=== PATIENT | male | born 1960 | race Caucasian/White ===

== ENCOUNTER 2025-06-01 09:40 | Outpatient (CLI) | payer MEDICARE ==
[2025-06-01 11:21] LABS: #Basophils 0.05 10x3/uL (0.0-0.2); #Eosinophils 0.18 10x3/uL (0.0-0.7); #Monocytes 0.32 10x3/uL (0.11-0.59); #Neutrophils 3.28 10x3/uL (1.40-6.50); %Basophils 0.7 % (0.0-1.0); %Eosinophils 2.6 % (0.0-10.0); %Lymphocytes 44.0 % (21.0-51.0); %Monocytes 4.6 % (0.0-10.0); %Neutrophils 47.7 % (42.0-75.0); Hematocrit 48.6 % (42.0-52.0); Hemoglobin 15.7 g/dL (14.0-18.0); Mean Corpuscular Hemoglobin 29.1 pg (27.0-31.0); Mean Corpuscular Volume 90.2 fL (78.0-98.0); Platelet Count 267 10x3/uL (130-400); Red Blood Cell (RBC) Count 5.39 mill/uL (4.70-6.10); White Blood Cell (WBC) Count 6.89 10x3/uL (4.8-10.8)
[2025-06-01 11:37] LABS: INR-International Normal Ratio 1.0; Prothrombin Time 13.4 sec (12.0-14.7)
[2025-06-01 11:38] LABS: PTT 31.2 sec (22.9-36.1)
[2025-06-01 11:41] LABS: Anion Gap 17 mmol/L (10-20); BUN (Urea Nitrogen) 14 mg/dL (8.4-25.7); Calc. Creatinine Clearance 0 mL/min (70-130); Calcium 9.1 mg/dL (7.8-10.44); Carbon Dioxide 26 mmol/L (23-31); Chloride 102 mmol/L (98-107); Glucose 140 mg/dL (80-115); Potassium 4.1 mmol/L (3.5-5.1); Sodium 141 mmol/L (136-145)
[2025-06-01 12:02] LABS: Bacteria/HPF None Seen HPF (None Seen); Glucose, Urine (Dipstick) Normal (Negative); Leukocyte Negative Leu/uL (Negative); Protein, Urine (Dipstick) Negative (Neg-Trace); RBC/HPF 0-3 HPF (0-3); Specific Gravity, Urine 1.024 (1.002-1.036); WBC/HPF 0-3 HPF (0-3)
== END 2025-06-01 09:41 | disposition home or self-care (01) ==
LOC: LABBT 09:40
PROVIDERS: ATTEND Urology
DX: Z01.818 Encounter for other preprocedural examination (principal); Z12.5 Encounter for screening for malignant neoplasm of prostate; N43.3 Hydrocele, unspecified; Z72.0 Tobacco use; Z87.440 Personal history of urinary (tract) infections; Z86.73 Personal history of transient ischemic attack (TIA), and cerebral infarction without residual deficits; Z86.79 Personal history of other diseases of the circulatory system
CPT/HCPCS: 80048; 81001; 85025; 85610; 85730; 87086; 93005; 93010

== ENCOUNTER 2025-06-15 07:34 | Day surgery (SDC) | payer MEDICARE ==
[2025-06-01 09:50] VITALS: BMI 41.8
[2025-06-15] MEDS ORDERED: LevoFLOXacin D5W 500 mg (100 mL) BAG ONE (08:19)
[2025-06-15] MEDS ORDERED: CEFAZOLIN 2 GM VIAL ONE (08:19)
[2025-06-15] MEDS ORDERED: Rocuronium Bromide 10 MG/ML (10ML VIAL) ONE (10:34)
[2025-06-15] MEDS ORDERED: Lidocaine 1% PF 5 ML VIAL ONE (10:34)
[2025-06-15] MEDS ORDERED: Ondansetron PF 4 MG/2 ML Vial ONE (10:34)
[2025-06-15] MEDS ORDERED: SUGAMMADEX SODIUM 200 MG/2 ML VIAL ONE (10:35)
[2025-06-15] MEDS ORDERED: PROPOFOL 40 ML ONE (10:35)
[2025-06-15] MEDS ORDERED: fentaNYL PF 100 MCG/2 ML SYRINGE ONE (10:35)
[2025-06-15] MEDS ORDERED: Bupivacaine 0.25% HCL 30 ML VIAL ONE (11:31)
[2025-06-15] MEDS ORDERED: Bacitracin Zinc Ointment 30 gm TUBE ONE (11:31)
[2025-06-15] MEDS ORDERED: HYDROcodone/Acetaminophen 5/325 mg Tablet ONE (15:30)
== END 2025-06-15 16:01 | disposition home or self-care (01) ==
LOC: SDC 07:34
PROVIDERS: ATTEND Urology
PROC: 0TJB8ZZ Inspection of Bladder, Via Natural or Artificial Opening Endoscopic (ICD-10-PCS; principal; 2025-06-15)
PROC: 0VBG0ZZ Excision of Left Spermatic Cord, Open Approach (ICD-10-PCS; 2025-06-15)
DX: N43.3 Hydrocele, unspecified (principal); N35.912 Unspecified bulbous urethral stricture, male; Q55.64 Hidden penis; I10 Essential (primary) hypertension; I25.2 Old myocardial infarction; E78.5 Hyperlipidemia, unspecified; E66.01 Morbid (severe) obesity due to excess calories; F32.A Depression, unspecified; F17.220 Nicotine dependence, chewing tobacco, uncomplicated; Z68.41 Body mass index [BMI] 40.0-44.9, adult; Z86.73 Personal history of transient ischemic attack (TIA), and cerebral infarction without residual deficits; Z90.49 Acquired absence of other specified parts of digestive tract; Z79.899 Other long term (current) drug therapy
CPT/HCPCS: 55040; 52000; J0665; J1100; J1580; J1956; J2704; 88302